=== PATIENT | female | born 1985 | race Caucasian/White ===

== ENCOUNTER 2017-03-13 08:28 | Emergency (ER) | payer OTHER | END 2017-03-13 10:19 | disposition home or self-care (01) | LOC: FTE 08:28 | DX: O99.89 Other specified diseases and conditions complicating pregnancy, childbirth and the puerperium (principal); M27.0 Developmental disorders of jaws; Z3A.27 27 weeks gestation of pregnancy | CPT/HCPCS: 99282; Z7502 ==

== ENCOUNTER 2017-06-09 19:10 | Outpatient (CLI) | payer OTHER ==
[2017-06-10] MEDS ORDERED: METOCLOPRAMIDE 10 MG INJ (14:46)
[2017-06-10] MEDS ORDERED: PHENYLephrine (100 MCG/ML) 5ML SYG (14:46)
[2017-06-10] MEDS ORDERED: BUPIVACAINE 0.75%/DEXT (SPINAL) 2 ML INJ (14:46)
[2017-06-10] MEDS ORDERED: FENTAnyl 50 MCG/ML VIAL (14:46)
[2017-06-10] MEDS ORDERED: morphine SULFATE/PF (10 MG/10 ML) INJ (14:46)
[2017-06-10] MEDS ORDERED: OXYTOCIN 10 UNIT INJ (14:46)
[2017-06-10] MEDS ORDERED: DEXAMETHASONE 4 MG/ML 1 ML INJ (15:24)
== END 2017-06-09 22:36 | disposition home or self-care (01) ==
LOC: OBT 19:10 → L-D 19:11 → OBT 22:36
DX: O48.0 Post-term pregnancy (principal); O32.1XX0 Maternal care for breech presentation, not applicable or unspecified; Z3A.40 40 weeks gestation of pregnancy
CPT/HCPCS: 76818

== ENCOUNTER 2017-06-10 11:41 | Inpatient (IN) | payer OTHER ==
[2017-06-10] MEDS ORDERED: MISOPROSTOL 200 MCG TAB PR ×2 (12:30→18:30)
[2017-06-10] MEDS ORDERED: CARBOPROST 250 MCG INJ IM ×2 (12:30→18:30)
[2017-06-10] MEDS ORDERED: METHYLERGONOVINE 0.2 MG INJ IM ×2 (12:30→18:30)
[2017-06-10] MEDS: LACTATED RINGER'S 1,000 ML IV ×2 (12:41→20:56)
[2017-06-10 12:56] LABS: ADD MAN DIFF? NO
[2017-06-10 13:04] LABS: BASOPHILS % 0.2 % (0.0-2.0); EOSINOPHILS % 0.5 % (0.0-7.0); HEMATOCRIT 31.9 % (37.0-47.0); HEMOGLOBIN 10.6 g/dl (12.0-16.0); LYMPHOCYTES # 1.8 10^3/ul (0.8-2.9); MEAN CORPUSCULAR HEMOGLOBIN 30.4 pg (29.0-33.0); MEAN CORPUSCULAR HGB CONC 33.2 g/dl (32.0-37.0); MEAN CORPUSCULAR VOLUME 91.4 fl (82.0-101.0); MEAN PLATELET VOLUME 9.3 fl (7.4-10.4); MONOCYTE # 0.6 10^3/ul (0.3-0.9); MONOCYTES % 8.4 % (0.0-11.0); NEUTROPHIL # 4.1 10^3/ul (1.6-7.5); NEUTROPHILS % 63.4 % (39.0-77.0); PLATELET COUNT 301 10^3/UL (140-415); RED BLOOD COUNT 3.49 10^6/ul (4.20-5.40); RED CELL DISTRIBUTION WIDTH 14.1 % (11.5-14.5)
[2017-06-10 13:04] LABS: WHITE BLOOD COUNT 6.5 10^3/ul (4.8-10.8)
[2017-06-10 13:22] LABS: INR 0.97
[2017-06-10 13:23] LABS: PARTIAL THROMBOPLASTIN TIME 32.8 Sec (25.0-35.0)
[2017-06-10 13:55] LABS: HEPATITIS B SURFACE ANTIGEN NEGATIVE (NEGATIVE)
[2017-06-10] MEDS ORDERED: CITRIC ACID/SODIUM CITRATE 15 ML CUP (14:24)
[2017-06-10] MEDS: ONDANSETRON 4 MG INJ IV ×2 (14:24→20:08)
[2017-06-10] MEDS ORDERED: ONDANSETRON 4 MG INJ (14:24)
[2017-06-10] MEDS: CITRIC ACID/SODIUM CITRATE 15 ML CUP PO (14:30)
[2017-06-10] MEDS: CEFAZOLIN 2 GM/50 ML (PMX) 50 ML IVPB (14:30)
[2017-06-10] MEDS ORDERED: CEFAZOLIN 2 GM/50 ML (PMX) 50 ML IVPB (14:37)
[2017-06-10] MEDS: OXYTOCIN 30 UNITS/LR 500 ML IV ×2 (16:18→16:48)
[2017-06-10 16:48] LABS: RAPID PLASMA REAGIN NONREACTIVE (NR)
[2017-06-10] MEDS ORDERED: MEPERIDINE 25 MG INJ IV (17:00)
[2017-06-10] MEDS ORDERED: morphine 2 MG INJ IV ×2 (17:00)
[2017-06-10] MEDS ORDERED: OXYCODONE/ACETAMINOPHEN (5/325) TAB PO ×2 (17:00)
[2017-06-10] MEDS ORDERED: NALOXONE (0.4 MG/ML) INJ IV (17:00)
[2017-06-10] MEDS ORDERED: LABETALOL HCL 20MG INJ IV (17:00)
[2017-06-10] MEDS ORDERED: DIPHENHYDRAMINE 50 MG INJ IV ×2 (17:00)
[2017-06-10] MEDS ORDERED: TRIMETHOBENZAMIDE 100 MG/ML VIAL IM ×2 (17:00)
[2017-06-10] MEDS ORDERED: ALBUTEROL 0.083% (NEB) 2.5 MG/3 ML AMP HHN (17:00)
[2017-06-10] MEDS ORDERED: EPHEDrine SULFATE 50 MG/5 ML SYG IV (17:00)
[2017-06-10] MEDS ORDERED: hydrALAzine 20 MG INJ IV (17:00)
[2017-06-10] MEDS ORDERED: FENTAnyl 50 MCG/ML VIAL IV ×3 (17:00)
[2017-06-10] MEDS ORDERED: IPRATROPIUM (NEB) 0.5 MG/2.5 ML AMP HHN (17:00)
[2017-06-10] MEDS ORDERED: NALBUPHINE HCL (10 MG/1 ML) INJ IV (17:00)
[2017-06-10] MEDS ORDERED: ONDANSETRON 4 MG INJ IV (17:00)
[2017-06-10] MEDS ORDERED: HYDROmorphONE (0.2 MG/ML) 10ML SYG IV ×3 (17:00)
[2017-06-10] MEDS ORDERED: OXYTOCIN 10 UNIT INJ (17:37)
[2017-06-10] MEDS ORDERED: FENTAnyl 50 MCG/ML VIAL (17:37)
[2017-06-10] MEDS ORDERED: morphine SULFATE/PF (10 MG/10 ML) INJ (17:37)
[2017-06-10] MEDS ORDERED: PHENYLephrine (100 MCG/ML) 5ML SYG (17:37)
[2017-06-10] MEDS ORDERED: METOCLOPRAMIDE 10 MG INJ (17:37)
[2017-06-10] MEDS ORDERED: BUPIVACAINE 0.75%/DEXT (SPINAL) 2 ML INJ (17:38)
[2017-06-10] MEDS ORDERED: OXYTOCIN 30 UNITS/LR 500 ML IV (18:30)
[2017-06-10] MEDS ORDERED: LANOLIN 7 GM TUBE TOP (18:30)
[2017-06-10] MEDS ORDERED: NA PHOSPHATE/BIPHOS 133 ML ENEMA PR (18:30)
[2017-06-10] MEDS: KETOROLAC 30 MG INJ IV (19:37)
[2017-06-10] MEDS: SENNA/DOCUSATE NA (8.6MG/50MG) TAB PO (21:00)
[2017-06-11] MEDS: LACTATED RINGER'S 1,000 ML IV ×3 (05:05→18:51)
[2017-06-11] MEDS: CEFAZOLIN 2 GM/50 ML (PMX) 50 ML IVPB ×2 (06:22→13:05)
[2017-06-11] MEDS: KETOROLAC 30 MG INJ IV ×2 (08:17→15:26)
[2017-06-11] MEDS: SENNA/DOCUSATE NA (8.6MG/50MG) TAB PO (08:17)
[2017-06-11 09:03] LABS: ADD MAN DIFF? NO
[2017-06-11 09:09] LABS: BASOPHILS % 0.1 % (0.0-2.0); HEMATOCRIT 27.4 % (37.0-47.0); HEMOGLOBIN 9.2 g/dl (12.0-16.0); LYMPHOCYTES # 1.1 10^3/ul (0.8-2.9); MEAN CORPUSCULAR HEMOGLOBIN 30.8 pg (29.0-33.0); MEAN CORPUSCULAR HGB CONC 33.6 g/dl (32.0-37.0); MEAN CORPUSCULAR VOLUME 91.6 fl (82.0-101.0); MEAN PLATELET VOLUME 9.2 fl (7.4-10.4); MONOCYTE # 0.4 10^3/ul (0.3-0.9); MONOCYTES % 5.9 % (0.0-11.0); NEUTROPHIL # 5.9 10^3/ul (1.6-7.5); NEUTROPHILS % 78.6 % (39.0-77.0); PLATELET COUNT 246 10^3/UL (140-415); RED BLOOD COUNT 2.99 10^6/ul (4.20-5.40); RED CELL DISTRIBUTION WIDTH 13.8 % (11.5-14.5)
[2017-06-11 09:09] LABS: WHITE BLOOD COUNT 7.5 10^3/ul (4.8-10.8)
[2017-06-11] MEDS ORDERED: BISACODYL 10 MG SUPP PR (10:00)
[2017-06-11] MEDS ORDERED: OXYCODONE/ACETAMINOPHEN (5/325) TAB PO (14:41)
[2017-06-11] MEDS: CLINDAMYCIN 300 MG CAP PO (19:04)
[2017-06-11] MEDS: IBUPROFEN 800 MG TAB PO (22:00)
[2017-06-11] MEDS ORDERED: morphine 2 MG INJ IV ×2 (22:00)
[2017-06-11] MEDS ORDERED: ZOLPIDEM 5 MG TAB PO (22:00)
[2017-06-11] MEDS ORDERED: KETOROLAC 30 MG INJ IV (22:00)
[2017-06-11] MEDS ORDERED: ONDANSETRON 4 MG INJ IV (22:00)
[2017-06-11] MEDS ORDERED: DIPHENHYDRAMINE 50 MG INJ IV (22:00)
[2017-06-11] MEDS ORDERED: IBUPROFEN 800 MG TAB PO (22:00)
[2017-06-11] MEDS ORDERED: NALOXONE (0.4 MG/ML) INJ IV (22:00)
[2017-06-12] MEDS: SENNA/DOCUSATE NA (8.6MG/50MG) TAB PO ×3 (00:28→21:11)
[2017-06-12] MEDS: CLINDAMYCIN 300 MG CAP PO ×5 (00:28→23:39)
[2017-06-12] MEDS: HYDROCODONE/APAP (5/325) TAB PO ×3 (00:30→17:53)
[2017-06-12] MEDS: LACTATED RINGER'S 1,000 ML IV (02:28)
[2017-06-12] MEDS: IBUPROFEN 800 MG TAB PO ×2 (14:12→21:11)
[2017-06-13] MEDS: CLINDAMYCIN 300 MG CAP PO ×2 (05:30→11:49)
[2017-06-13] MEDS: IBUPROFEN 800 MG TAB PO ×2 (05:30→13:35)
[2017-06-13] MEDS: DIPHTH/TET/ACEL PERTUSS (ADULT) 0.5 ML VIAL IM* (09:10)
[2017-06-13] MEDS: MEASLES,MUMPS,RUBELLA VACCINE INJ SC* (09:11)
[2017-06-13] MEDS: SENNA/DOCUSATE NA (8.6MG/50MG) TAB PO (09:16)
== END 2017-06-13 15:24 | disposition home or self-care (01) | DRG 766 ==
LOC: L-D 11:41 → PP1 19:56
PROVIDERS: Obstetrics & Gynecology
PROC: 10D00Z1 Extraction of Products of Conception, Low, Open Approach (ICD-10-PCS; principal; 2017-06-10)
PROC: 3E033VJ Introduction of Other Hormone into Peripheral Vein, Percutaneous Approach (ICD-10-PCS; 2017-06-10)
DX: O32.1XX0 Maternal care for breech presentation, not applicable or unspecified (principal); O48.0 Post-term pregnancy; Z3A.40 40 weeks gestation of pregnancy; Z37.0 Single live birth
CPT/HCPCS: 76815; 85025; 85610; 85730; 86592; 86850; 86900; 86901; 87340; 99464